=== PATIENT | female | born 1970 | race Caucasian/White ===

== ENCOUNTER → 2019-10-11 | Outpatient (CLI) | payer BC ==
[~2019-10-11] MED LIST: ALPR0.2550 PO; BC PILL PO; CRAN250C PO; DCS100C PO; ERGO400C PO; ESTR1TAB24 PO; HYDR1TAB75 PO; IBP800T PO; MTF500T PO; MULT-608 PO; PIRB14AE4 IH; PREG300C PO; VNL75CCR PO
--- NOTE | 2019-10-11 12:38 | Diagnostic Imaging Report ---
CLINICAL INDICATION: Patient has low back pain and history of degenerative disc disease. Patient had previous low back surgery in 2015. EXAM: MRI of the lumbar spine performed without IV contrast. Sagittal T2, sagittal T1, sagittal T2 fat-sat, and axial T2. COMPARISON: None. FINDINGS: There are postop changes to the lower lumbar spine with L5 laminectomies. There are no hardware instruments noted. There is a fluid collection in the posterior lower lumbar region spanning from the L4 through L5 level which is superficial to the muscular fascia and is within the subcutaneous fat. This fluid collection measures 2.4 cm x 2.4 cm x 6.0 cm (AP x Trans x CC). There is left curvature of the lumbar spine. There are hypertrophic spurs throughout the lumbar spine with facet arthropathy. There is no acute lumbar spine fracture or dislocation. The visualized portions of the distal thoracic spinal cord, conus medullaris, and cauda equina nerve roots are unremarkable. The conus medullaris tip is seen at the T12-L1 intervertebral level. L1-L2: There is diffuse disc bulge with mild loss of intervertebral disc height and low T2 degenerative disc signal changes. There are chronic Schmorl's nodes involving the endplates. There is mild bilateral facet arthropathy. There is no significant central spinal canal or neural foramen narrowing. L2-L3: There is diffuse disc bulge with moderate loss of intervertebral disc height and small chronic Schmorl's nodes. There is moderate facet arthropathy. There is mild central canal narrowing. There is mild left neuroforamen narrowing and no significant right neuroforamen narrowing. L3-L4: There is an asymmetric disc bulge with hypertrophic far right lateral disc spurs which also extends into the right foraminal region and anterior right aspect of the disc. There is severe bilateral facet arthropathy/hypertrophy. There is mild central canal narrowing, [id number] right neuroforamen narrowing, and moderate left neuroforamen narrowing. L4-L5: There is diffuse disc bulge with moderate loss of intervertebral disc height and disc spurs extending into the foraminal regions on the right side. There is severe bilateral neuroforamen narrowing. There is moderate central canal narrowing. There is severe bilateral facet arthropathy/hypertrophy. L5-S1: There is a diffuse disc bulge and annular tear anteriorly. There is severe right facet arthropathy/hypertrophy and moderate left facet arthropathy/hypertrophy. There is no significant central canal narrowing. There is severe left neuroforamen narrowing and no significant right neuroforamen narrowing. IMPRESSION: 1: There are postop changes to the lower lumbar spine with L5 laminectomy. There is a small fluid collection in the posterior lower lumbar laminectomy region which is superficial to the muscular fascia. Seroma versus pseudomeningocele may be considered. Infected fluid collection is suspected to be less likely. 2: There is addlvwyn-af-ogtbni multilevel lumbar spine degenerative disc disease which is described in detail above. Dictated by: Dictated on workstation # [id number]
== END ==
LOC: RAD 08:36
PROVIDERS: ATTEND Physician Assistant
DX: M47.817 Spondylosis without myelopathy or radiculopathy, lumbosacral region (principal)
CPT/HCPCS: 72148

== ENCOUNTER 2022-12-02 11:54 | Emergency (ER) | payer BC, OTHER ==
[~2022-12-02] VITALS: Ht 160 cm; Wt 108.8 kg
--- NOTE | 2022-12-02 12:05 | ED Chest Pain ---
General Stated Complaint: CHEST PAIN Source: patient Exam Limitations: no limitations History of Present Illness Date Seen by Provider: Dec 02, 2022 Time Seen by Provider: 11:53 Initial Comments 52-year-old female presents to the emergency department today for chest pain. Symptoms started about an hour and a half ago when she was sitting at her desk at work. They do not seem to be associated with exertion. She is described as a sharp sensation in her anterior chest with radiation to her mid back. They have been intermittent since onset and last 30 or 40 seconds when present. Associated with some mild nausea. She states she has not felt well in the last couple of days, she is generally feeling rundown. They have been trying to change around some diabetic medications. She has a history of constipation and was started on Victoza but this made her constipation worse so they switched her back to metformin. She denies any fevers chills cough abdominal pain, changes in bladder habits All other systems reviewed and negative except documented per HPI. Voice recognition software was used to help create this chart Allergies and Home Medications Allergies Coded Allergies: Sulfa (Sulfonamide Antibiotics) (Unverified Allergy, 12/14/10) Patient Home Medication List Home Medication List Reviewed: Yes Alprazolam (Alprazolam) 0.25 Mg Tab.rapdis, 1 EACH PO Q8HR PRN, (Reported) Entered as Reported by: GOLD FREDERICK on 12/14/10 1341 Cholecalciferol (Vitamin D) 400 Unit Capsule, 400 UNIT PO DAILY, (Reported) Entered as Reported by: GOLD FREDERICK on 12/14/10 1341 Cranberry Extract (Cranberry) 250 Mg Capsule, 500 MG PO BID, (Reported) Entered as Reported by: GOLD FREDERICK on 12/14/10 1341 Docusate Sodium (Colace) 100 Mg Capsule, 100 MG PO BID, (Reported) Entered as Reported by: KELLY CALDERA on 12/21/10 1354 Estradiol (Estradiol) 1 Mg Tablet, 2 MG PO DAILY, (Reported) Entered as Reported by: KELLY CALDERA on 12/21/10 1354 Hydrocodone Bit/Acetaminophen (Hydrocodone-Apap 7.5-650 Tab) 1 Each Tablet, 1-2 EACH PO Q3HRS NEEDED, (Reported) Entered as Reported by: KELLY CALDERA on 12/21/10 1352 Ibuprofen (Motrin) 800 Mg Tablet, 1 TAB PO Q6HRS NEEDED, (Reported) Entered as Reported by: KELLY CALDERA on 12/21/10 1354 Metformin Hcl (Metformin 500 Mg) 500 Mg Tablet, 1 EACH PO AM, (Reported) Entered as Reported by: GOLD FREDERICK on 12/14/10 1341 Metformin Hcl (Metformin 500 Mg) 500 Mg Tablet, 500 MG PO HS, (Reported) Entered as Reported by: GOLD FREDERICK on 12/14/10 1341 Multivitamins (Multiple Vitamin) 1 Tab Tablet, 1 TAB PO DAILY, (Reported) Entered as Reported by: GOLD FREDERICK on 12/14/10 1341 Pirbuterol Acetate (Maxair Autohaler) 14 Gm Aer.br.act, 14 GM IH PRN, (Reported) Entered as Reported by: GOLD FREDERICK on 12/14/10 134 Pregabalin (Lyrica) 300 Mg Capsule, 300 MG PO BID, (Reported) Entered as Reported by: GOLD FREDERICK on 12/14/10 134 Venlafaxine Hcl (Effexor Xr) 75 Mg Cap, 150 MG PO DAILY, (Reported) Entered as Reported by: GOLD FREDERICK on 12/14/10 134 Review of Systems Review of Systems Constitutional: see HPI Past Eqvbalm-Rjiepx-Hmttpo Hx Patient Social History Tobacco Use?: No Use of E-Cig and/or Vaping dev: No Substance use?: No Alcohol Use?: No Past Medical History Reproductive Disorders: Yes (ENDOMETRIOSIS) Physical Exam Vital Signs Vital Signs - First Documented 12/02/22 12:00 Temp 36.0 Pulse 81 Resp 16 B/P (MAP) 161/95 (117) Pulse Ox 100 O2 Delivery Room Air Capillary Refill : Height, Weight, BMI Height: '" Weight: lbs. oz. kg; BMI Method: General Appearance: No Apparent Distress, WD/WN HEENT: Normal ENT Inspection, Pharynx Normal Neck: Full Range of Motion, Normal Inspection, Non Tender, Supple Respiratory: Chest Non Tender, Lungs Clear, Normal Breath Sounds, No Accessory Muscle Use, No Respiratory Distress Cardiovascular: Regular Rate, Rhythm, No Murmur, Normal Peripheral Pulses Gastrointestinal: Normal Bowel Sounds, No Organomegaly, No Pulsatile Mass, Non Tender, Soft Extremity: Normal Capillary Refill, Normal Inspection, Normal Range of Motion, Non Tender, No Calf Tenderness Neurologic/Psychiatric: Alert, Oriented x3, No Motor/Sensory Deficits Skin: Normal Color, Warm/Dry Progress/Results/Core Measures Results/Orders Lab Results Laboratory Tests Test 12/02/22 12:05 12/02/22 13:30 Range/Units White Blood Count 7.4 4.3-11.0 10^3/uL Red Blood Count 5.87 H 3.80-5.11 10^6/uL Hemoglobin 16.1 H 11.5-16.0 g/dL Hematocrit 49 35-52 % Mean Corpuscular Volume 83 80-99 fL Mean Corpuscular Hemoglobin 27 25-34 pg Mean Corpuscular Hemoglobin Concent 33 32-36 g/dL Red Cell Distribution Width 13.1 10.0-14.5 % Platelet Count 199 130-400 10^3/uL Mean Platelet Volume 10.5 9.0-12.2 fL Immature Granulocyte % (Auto) 0 % Neutrophils (%) (Auto) 62 42-75 % Lymphocytes (%) (Auto) 29 12-44 % Monocytes (%) (Auto) 7 0-12 % Eosinophils (%) (Auto) 2 0-10 % Basophils (%) (Auto) 1 0-10 % Neutrophils # (Auto) 4.6 1.8-7.8 10^3/uL Lymphocytes # (Auto) 2.1 1.0-4.0 10^3/uL Monocytes # (Auto) 0.5 0.0-1.0 10^3/uL Eosinophils # (Auto) 0.2 0.0-0.3 10^3/uL Basophils # (Auto) 0.1 0.0-0.1 10^3/uL Immature Granulocyte # (Auto) 0.0 0.0-0.1 10^3/uL Sodium Level 140 135-145 MMOL/L Potassium Level 4.4 3.6-5.0 MMOL/L Chloride Level 105 98-107 MMOL/L Carbon Dioxide Level 25 21-32 MMOL/L Anion Gap 10 5-14 MMOL/L Blood Urea Nitrogen 14 7-18 MG/DL Creatinine 0.93 0.60-1.30 MG/DL Estimat Glomerular Filtration Rate 73 BUN/Creatinine Ratio 15 Glucose Level 101 70-105 MG/DL Calcium Level 10.0 8.5-10.1 MG/DL Corrected Calcium 8.5-10.1 MG/DL Total Bilirubin 0.4 0.1-1.0 MG/DL Aspartate Amino Transf (AST/SGOT) 18 5-34 U/L Alanine Aminotransferase (ALT/SGPT) 26 0-55 U/L Alkaline Phosphatase 66 40-136 U/L Troponin I < 0.30 < 0.30 <0.30 NG/ML Total Protein 7.3 6.4-8.2 GM/DL Albumin 4.7 H 3.2-4.5 GM/DL Lipase 48 8-78 U/L My Orders Orders - OCTAVIO ORTEGA DO Cbc With Automated Diff (12/02/22 12:02) Comprehensive Metabolic Panel (12/02/22 12:02) Lipase (12/02/22 12:02) Chest Pa/Lat (2 View) (12/02/22 12:02) Ondansetron Injection (Zofran Injectio (12/02/22 12:15) Ekg Tracing (12/02/22 12:18) Troponin I Fs (12/02/22 12:37) Ekg Tracing (12/02/22 12:56) Lorazepam Injection (Ativan Injection) (12/02/22 13:15) Troponin I Fs (12/02/22 13:45) Medications Given in ED Current Medications Medications Dose Ordered Sig/Edmar Route Start Time Stop Time Status Last Admin Dose Admin Lorazepam 1 mg ONCE ONCE IVP 12/02/22 13:15 12/02/22 13:16 DC 12/02/22 13:08 1 MG Ondansetron HCl 8 mg ONCE ONCE IVP 12/02/22 12:15 12/02/22 12:16 DC 12/02/22 12:20 8 MG Vital Signs/I&O 12/02/22 12/02/22 12:00 14:03 Temp 36.0 36.0 Pulse 81 79 Resp 16 16 B/P (MAP) 161/95 (117) 140/65 Pulse Ox 100 98 O2 Delivery Room Air Room Air Comment Sinus rhythm with a rate of 76 bpm. Normal intervals. Left axis deviation. No ST or T wave abnormalities. No ectopy. No STEMI. Departure Communication (Admissions) Patient is hemodynamically stable. Heart score is 2 making her at low overall risk for major adverse cardiac events in the next 30 days. 2 negative sets of cardiac enzymes with a negative EKG. Work-up with is otherwise unremarkable. Upon our into her stay she called me into the room stating her symptoms had changes she thought she was having an anxiety attack. She has had these in the past and takes Xanax at home as needed but does not have to take it very often. I did repeat EKG at 1259 which showed sinus rhythm at 80 bpm with no evidence for ischemia. Normal intervals and axis. No ST or T wave abnormalities and no ectopy. I gave her some Ativan and this helped with her symptoms. I think overall she is low risk and does not require admission at this time. Recommended outpatient follow-up. I have independently reviewed her labs and chest x-ray. Labs are unremarkable. Chest x-ray shows no evidence for pneumothorax, pneumonia, cardiac abnormality or bony abnormality. Impression Primary Impression: Chest pain Qualified Codes: R07.9 - Chest pain, unspecified Disposition: 01 HOME, SELF-CARE Condition: Stable Departure-Patient Inst. Referrals: MUKUND KAN (PCP) Primary Care Physician MELANIE MCCORMACK MD (Family) Primary Care Physician Patient Instructions: Chest Pain That Is Not Caused by the Heart (DC) Add. Discharge Instructions: You were seen in the emergency department today for chest pain. No emergent medical conditions are identified for your symptoms. This does not appear to be coming from your heart. The change in your symptoms during emergency department stay do seem to be from anxiety. I believe that this is extremely low risk to be an emergent medical condition at this time and is warranted for outpatient follow-up. Follow-up with your primary care doctor f in the next 2 weeks for further evaluation and treatment. Return to the emergency department for any severe concerns. Use your Xanax at home as needed for anxiety. OCTAVIO ORTEGA DO Dec 02, 2022 12:05
[2022-12-02 12:11] LABS: BASOPHILS # (AUTO) 0.1 10^3/uL (0.0-0.1); BASOPHILS % (AUTO) 1 % (0-10); EOSINOPHILS # (AUTO) 0.2 10^3/uL (0.0-0.3); EOSINOPHILS % (AUTO) 2 % (0-10); HEMATOCRIT 49 % (35-52); HEMOGLOBIN 16.1 g/dL (11.5-16.0); LYMPHOCYTES # (AUTO) 2.1 10^3/uL (1.0-4.0); LYMPHOCYTES % (AUTO) 29 % (12-44); MEAN CORPUSCULAR HEMOGLOBIN 27 pg (25-34); MEAN CORPUSCULAR HGB CONC 33 g/dL (32-36); MEAN CORPUSCULAR VOLUME 83 fL (80-99); MEAN PLATELET VOLUME 10.5 fL (9.0-12.2); MONOCYTES # (AUTO) 0.5 10^3/uL (0.0-1.0); MONOCYTES % (AUTO) 7 % (0-12); NEUTROPHILS # (AUTO) 4.6 10^3/uL (1.8-7.8); NEUTROPHILS % (AUTO) 62 % (42-75); PLATELET COUNT 199 10^3/uL (130-400); WHITE BLOOD COUNT 7.4 10^3/uL (4.3-11.0)
[2022-12-02] MEDS ORDERED: ONDANSETRON 4 MG/2 ML (SDV) Z0FRAN IVP ONE (12:15)
[2022-12-02 12:32] LABS: ALANINE AMINOTRANSFERASE 26 U/L (0-55); ALBUMIN 4.7 GM/DL (3.2-4.5); ALKALINE PHOSPHATASE 66 U/L (40-136); BILIRUBIN,TOTAL 0.4 MG/DL (0.1-1.0); BUN/CREATININE RATIO 15; CARBON DIOXIDE 25 MMOL/L (21-32); CHLORIDE 105 MMOL/L (98-107); CREATININE SERUM 0.93 MG/DL (0.60-1.30); GFR ESTIMATED 73; GLUCOSE 101 MG/DL (70-105); LIPASE 48 U/L (8-78); POTASSIUM 4.4 MMOL/L (3.6-5.0); SODIUM 140 MMOL/L (135-145); TOTAL PROTEIN 7.3 GM/DL (6.4-8.2)
--- NOTE | 2022-12-02 12:42 | Diagnostic Imaging Report ---
CHEST PA/LAT (2 VIEW) Indication: Chest pain Comparison: None available Findings: No pulmonary mass or consolidation. No pleural effusion or pneumothorax. Normal heart size and mediastinal contours. Impression: No acute cardiopulmonary process. Dictated by: Dictated on workstation # [id number]
[2022-12-02] MEDS ORDERED: LORazepam INJ 2 MG/ML (ATIVAN) VIAL IVP ONE (13:15)
[2022-12-02 14:03] VITALS: BP 140/65
== END 2022-12-02 14:05 | disposition home or self-care (01) ==
LOC: EDUNIT# 11:54 → ER FS 11:55
DX: R07.89 Other chest pain (principal); K59.00 Constipation, unspecified; Z79.84 Long term (current) use of oral hypoglycemic drugs
CPT/HCPCS: 36415; 71046; 80053; 83690; 84484; 85025; 93005